=== PATIENT | male | born 1965 | race Caucasian/White ===

== ENCOUNTER 2025-06-05 01:20 | Emergency (ER) | payer MEDICAID, OTHER ==
[~2025-06-05] VITALS: Ht 175.3 cm; Wt 100.3 kg
--- NOTE | 2025-06-05 02:27 | ED.PDOC ---
Musculoskeletal HPI Comments HPI: Poor Historian. 59-year-old male presents to emergency department for evaluation of left thumb pain injury status post mechanical slip and fall while he was taking the trash out earlier today. Patient complains of left thumb pain only. Denies any wrist or hand pain or any other injuries. Denies any head or neck injury. Past Medical History: Diabetes hypertension Past Surgical History: REVIEW OF SYSTEMS: CONSTITUTIONAL: Denies acute: fever, diaphoresis, chills, generalized weakness. HEAD: Denies acute: headache, photophobia Eyes: Denies acute: Double vision, vision loss, eye pain, eye discharge. EARS: Denies acute: tinnitus, hearing loss, ear discharge, ear pain, THROAT: Denies acute: sore throat, swelling, difficulty swallowing , pain with swallowing, change in voice. NECK: Denies acute: neck pain, neck swelling, stiff neck. HEART: Denies acute : chest pain, palpitations, LUNGS: Denies acute: SOB, wheezing, cough, hemoptysis ABDOMEN: Denies acute: abdominal pain, Nausea, Vomiting, diarrhea, melena , hematemesis, hematochezia SKIN: Denies acute: rash, redness, lesions, itchiness. EXTREMITIES: Denies acute: calf pain, numbness, tingling, weakness, Denies acute: Low back pain. Neuro: Denies acute: focal neurological deficit, motor or sensory focal neurological deficit, tremors, seizure like activity, confusion, dizziness, change in mental status, loss of bowel or bladder function, cauda equina like symptoms. : Denies acute: dysuria, hematuria, flank pain, increase in urinary frequency. PSYCH: Denies acute: hallucination, suicidal ideation, homicidal ideation. PHYSICAL EXAM: General: -----mild---acute distress, awake and alert. Head: normocephalic, atraumatic. No raccoon's eyes, no hobbs sign. Neck: supple, trachea is midline, no swelling. Throat: Normal phonation. Eyes:, no erythema, no purulent discharge, no proptosis, no icterus. Heart: regular rate, regular rhythm, no significant murmur appreciated. Lungs: no apparent respiratory distress, Able to speak in full sentences. No wheezing, no rhonchi, no crackles. No stridors Clear to auscultation bilaterally. Abdomen: non tender to palpation, non distended, soft, no guarding, no rebound, + bowel sounds. Neuro: Awake, Alert, oriented to name, self, situation, follows commands GCS=15. Speech is normal. Skin: no petechia, no purpura, no cyanosis, non-pale, not jaundice. Lower extremities: --no - Pitting edema no deformity, no focal swelling, no calf TTP. Makes eye contact. moves all four extremities. Face: no apparent facial droop. Evaluation of the left hand: Radial pulses palpable. Sensation motor are present. Patient is neurovascularly intact in the affected extremity. Patient has a focal tenderness to palpation of the mid left thumb at the dorsal aspect of the thumb. minimal swelling Ambulating in the ED independently. ED COURSE: DISCLAIMER: This medical document was created using an electronic medical record system with voice recognition software and computerized dictation system. Although this document has been carefully reviewed, there might still be some phonetic and typographical errors. Occasional wrong-word or "sound-alike" substitutions may have occurred due to the inherent limitations of voice recognition software. These areas are purely typographical due to imperfections of the software programs and do not reflect any compromise in the patient's medical care. Please read the chart carefully and recognize, using context, where these substitutions have occurred. Chief Complaint: Upper Extremity Time Seen by MD: 01:30 Reviewed Notes: Allergies Allergies: Coded Allergies: NO KNOWN ALLERGIES (Unverified , 06/05/25) Information Source: Patient Mode of Arrival: Ambulatory Location: Left X-Ray, Labs, Meds, VS Vital Signs Date Time Temp Pulse Resp B/P (MAP) Pulse Ox O2 Delivery O2 Flow Rate FiO2 06/05/25 02:39 187/103 06/05/25 01:21 98.1 75 18 186/128 98 98.1 Current Medications Medications (Trade) Dose Ordered Sig/Jonathan Route Start Time Stop Time Status Last Admin Acetaminophen/ Hydrocodone Bitart ([place] 5/325MG Tab) 1 tab ONCE ONCE PO 06/05/25 02:30 06/05/25 02:31 DC 06/05/25 02:38 Clonidine HCl (Catapres Tablet) 0.1 mg ONCE ONCE PO 06/05/25 02:45 06/05/25 02:46 06/05/25 02:39 Departure 1 Departure Time of Disposition: : Impression: Primary Impression: Injury of left thumb Disposition: HOME / SELF CARE / HOMELESS Condition: Stable Additional Instructions: Additional instructions: Please read all instructions provided in this packet carefully. You MUST follow-up with your primary care/family doctor in 1 to 2 days. If you are unable to see your primary care/family doctor, please return to our emergency room for re-assessment and re-evaluation in 1 to 2 days. Return to the emergency room here in our facility or to the nearest ER [facility] if your symptoms change or worsen. CONSULTATIONS: you MUST Follow-up for consultation as soon as possible with: ---hand orthopedic surgeon. Please call for appointment. You MUST call the consultants office yourself to make an appointment. You may need to arrange that through your insurance and/or your primary/family doctor. If you are unable to see the sr solutions consultant in 1 to 2 days, you must return to our emergency room (or any other ER of your choice) for re-assessment and re- evaluation. Adequate fluid hydration. Although you have been discharged from the Emergency Department, this does not mean that you have a "clean bill of health". No definitive diagnosis for your symptoms has been made today. It is possible that you are in the process of developing a serious illness. This is why you must return to the ED without fail if any new or worsening symptoms develop. Below is a copy of your radiological report for follow up: [place] [id number] Ph: [phone] DIAGNOSTIC IMAGING Diagnostic Imaging Report : [id number] Signed PATIENT: QI ELAINE ACCT: [id number] UNIT: [id number] : 1965 LOC: ER ROOM / BED: / AGE / SEX: 59 / M ADM STATUS: REG ER SERVICE 0130 ORDERING PHYSICIAN: MARIAH HOANG DO PROCEDURE(s): LHAN - L HAND 3V XRAY REASON: L thumb pain/injury ORDER NUMBER(s): [id number], ACCESSION NUMBER(s): [id number] EXAM: XY L HAND 3V XRAY REASON FOR EXAM: L thumb pain/injury TECHNIQUE: PA, lateral, and oblique views of the left hand are submitted for rev iew. COMPARISON: None FINDINGS: There is no acute fracture or dislocation. The soft tissues are grossly unremarkable. IMPRESSION: No acute fracture or dislocation. ATED BY: WILLIAM MICHAEL MD DICTATED DATE/TIME: 06/05/25228 SIGNED BY: WILLIAM MICHAEL MD SIGNED DATE/TIME: 06/05/25228 CC: Discharged With: MARIAH Edgar DO Jun 05, 2025 02:27
--- NOTE | 2025-06-05 02:31 | DVH ---
EXAM: XY L HAND 3V XRAY REASON FOR EXAM: L thumb pain/injury TECHNIQUE: PA, lateral, and oblique views of the left hand are submitted for review. COMPARISON: None FINDINGS: There is no acute fracture or dislocation. The soft tissues are grossly unremarkable. IMPRESSION: No acute fracture or dislocation.
[2025-06-05 02:35] VITALS: BP 187/103; PULSE 73; RESP 19; TEMP 98.8; O2SAT 96
[2025-06-05] MEDS: HYDROcodone-ACET 5/325MG TAB PO ONE (02:38)
== END 2025-06-05 02:50 | disposition home or self-care (01) ==
LOC: ER 01:20
DX: S69.82XA Other specified injuries of left wrist, hand and finger(s), initial encounter (principal); E11.9 Type 2 diabetes mellitus without complications; I10 Essential (primary) hypertension; W01.0XXA Fall on same level from slipping, tripping and stumbling without subsequent striking against object, initial encounter; Y93.89 Activity, other specified; Y92.89 Other specified places as the place of occurrence of the external cause; Y99.8 Other external cause status
CPT/HCPCS: 73130